=== PATIENT | male | born 1940 | race Caucasian/White ===

== ENCOUNTER 2016-11-03 11:46 | Emergency (ER) | payer MEDICARE, OTHER ==
--- NOTE | 2016-11-03 12:14 | EDM.PDOC ---
ED HPI ENT - General Chief Complaint: ENT Problem Stated Complaint: Oral bleeding Time Seen by Provider: 11/03/16 12:05 Source of Information: Reports: Patient, RN notes reviewed History Limitations: Reports: No limitations - History of Present Illness INITIAL COMMENTS - FREE TEXT/NARRATIVE: 76 year old male presents to the ED due to bleeding in his mouth. He had dental implants placed 3 days ago. Yesterday, his gums started to bleed where the implants were placed. The area has continued to bleed since that time. He has applied pressure with no resolution. He takes coumadin likely for A.fib, however the patient is a poor historian in regards to his medical history. He had his INR checked two weeks go but doesn't remember what it was. He denies dizziness or lightheadedness. - Related Data Allergies/ADRs: Allergies Allergy/AdvReac Type Severity Reaction Status Date / Time No Known Allergies Allergy Verified 04/08/15 13:11 Home Meds: Home Meds Amiodarone [Pacerone] 200 mg PO BEDTIME 11/04/14 [History] FLUoxetine HCl [Fluoxetine] 10 mg PO DAILY 11/04/14 [History] Finasteride [Proscar] 5 mg PO DAILY 11/04/14 [History] Levothyroxine 25 mcg PO DAILY 11/04/14 [History] Multivitamin with Minerals [Multiple Vitamin] 1 tab PO DAILY 11/04/14 [History] Thiamine Mononitrate [Vitamin B-1] 100 mg PO DAILY 11/04/14 [History] Torsemide 50 mg PO DAILY 11/04/14 [History] Carvedilol 12.5 mg PO BID #60 11/07/14 [Rx] Potassium Chloride [Klor-Con 10] 20 meq PO DAILY 04/08/15 [History] Tamsulosin [Flomax] 0.8 mg PO PCBREAKFAST 11/03/16 [History] Past Medical History HEENT History: Reports: Impaired vision Cardiovascular History: Reports: [place] Other Genitourinary History: chronic renal disease. denies dialysis Musculoskeletal History: Reports: Osteoarthritis Other Neuro History: had craniotomy due to head trauma - Past Surgical History Cardiovascular Surgical History: Reports: AICD Social & Family History - Tobacco Use Smoking Status *Q: Never Smoker Years of Tobacco use: 10 Used Tobacco, but Quit: No Month Tobacco Last Used: 1977 Second Hand Smoke Exposure: No - Alcohol Use Days Per Week of Alcohol Use: 0 Number of Drinks Per Day: 0 Total Drinks Per Week: 0 - Recreational Drug Use Recreational Drug Use: No Drug Use in Last 12 Months: No ED ROS ENT - Review of Systems Review Of Systems: See Below Constitutional: Reports: no symptoms. Denies: fever, chills HEENT: Reports: Other (oral bleeding) Respiratory: Reports: No Symptoms Cardiovascular: Reports: No symptoms ED EXAM, ENT - Physical Exam Exam: See Below Exam Limited By: No limitations General Appearance: alert, WD/WN, no apparent distress Nose: normal inspection, normal mucousa Mouth/Throat: Normal oropharynx, Other (bleeding from dental implants on the right upper gums. ) Head: atraumatic, normocephalic Respiratory/Chest: no respiratory distress, lungs clear Cardiovascular: regular rate, rhythm Course - Vital Signs Last Recorded V/S: Last Vital Signs Temp 97.8 F 11/03/16 11:52 Pulse 76 11/03/16 11:52 Resp 18 11/03/16 11:52 BP 121/80 11/03/16 11:52 Pulse Ox 99 11/03/16 11:52 - Orders/Labs/Meds Labs: Laboratory Tests 11/03/16 11/03/16 Range/Units 12:36 12:36 WBC 3.28 L (4.23-9.07) K/mm3 RBC 3.82 L (4.63-6.08) M/mm3 Hgb 12.1 L (13.7-17.5) gm/L Hct 37.7 L (40.1-51.0) % MCV 98.7 H (79.0-92.2) fl MCH 31.7 (25.7-32.2) pg MCHC 32.1 L (32.2-35.5) g/dl RDW Std Deviation 57.7 H (35.1-43.9) fL Plt Count 136 L (163-337) K/mm3 MPV 10.5 (9.4-12.3) fl PT 26.6 H (8.0-13.0) SECONDS INR 2.31 - Re-Assessments/Exams Free Text/Narrative Re-Assessment/Exam: H&H is stable at 12 and 37. INR is therapeutic at 2.3. The bleeding seems to be coming from within the gums, where the implants are inserted. Pressure has not be effective. The bleeding is slow. Discussed with Dr. Douglas who recommends holding the coumadin and said to consider reversing the coumadin with Vitamin K. This was discussed with the patient, including risks associated with reversing coumadin (stroke). Shared decision making process was utilized. The plan will be to hold the coumadin for two days and have him see his PCP in two days to discuss restarting the coumadin. He was thoroughly educated on return precautions including worsening bleeding, lightheadedness, syncope. I did pack the area between the gums and cheek to help hold some pressure. This may or may not be effective. I sent some additional gauze home with the patient. Discharge instructions as documented. Departure - Departure Time of Disposition: 13:36 Disposition: Home, Self-Care 01 Condition: good Clinical Impression: Bleeding gums Referrals: Patrick Garay MD [Primary Care Provider] - Forms: ED Department Discharge Additional Instructions: Hold coumadin for two days Follow-up with your regular provider on Friday for recheck of INR and to discuss restarting your coumadin Return to ER if bleeding does not resolve in 24 hours, if bleeding becomes heavier, you feel lightheaded, dizzy, or pass out.
[2016-11-03 13:55] VITALS: BP 120/67
== END 2016-11-03 13:55 | disposition home or self-care (01) ==
LOC: JD.ED 11:46
DX: K06.8 Other specified disorders of gingiva and edentulous alveolar ridge (principal); I25.2 Old myocardial infarction; N18.9 Chronic kidney disease, unspecified; Z95.810 Presence of automatic (implantable) cardiac defibrillator; Z98.890 Other specified postprocedural states; Z79.899 Other long term (current) drug therapy
CPT/HCPCS: 36415; 85027; 85610; 99282; 99283

== ENCOUNTER 2017-01-23 20:13 | Emergency (ER) | payer MEDICARE, OTHER ==
--- NOTE | 2017-01-23 20:55 | EDM.PDOC ---
ED HPI GENERAL MEDICAL PROBLEM - General Chief Complaint: Head Injury Stated Complaint: Fall Time Seen by Provider: 01/23/17 20:45 Source of Information: Reports: Patient, EMS, RN Notes Reviewed History Limitations: Reports: No Limitations - History of Present Illness INITIAL COMMENTS - FREE TEXT/NARRATIVE: 76 year old male presents to the ED via [facility] after a fall in the [employer] parking lot. He was lifting a case of gatorade into the back of his vehicle when the wind caught it, causing him to fall. He hit his head on the concrete, causing a laceration. He denies loss of consciousness. No neck pain. No vision changes, nausea, vomiting. No additional injury. He is on coumadin. He also has a red, swollen right hand. 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 There is a small abrasion to the hand. No numbness, tingling or weakness. He has a strong hand grasp. - Related Data Allergies Allergy/AdvReac Type Severity Reaction Status Date / Time No Known Allergies Allergy Verified 01/23/17 20:21 Home Meds: Home Meds Amiodarone [Pacerone] 200 mg PO BEDTIME 11/04/14 [History] FLUoxetine HCl [Fluoxetine] 10 mg PO DAILY 11/04/14 [History] Finasteride [Proscar] 5 mg PO DAILY 11/04/14 [History] Levothyroxine 25 mcg PO DAILY 11/04/14 [History] Multivitamin with Minerals [Multiple Vitamin] 1 tab PO DAILY 11/04/14 [History] Thiamine Mononitrate [Vitamin B-1] 100 mg PO DAILY 11/04/14 [History] Torsemide 50 mg PO DAILY 11/04/14 [History] Carvedilol 12.5 mg PO BID #60 11/07/14 [Rx] Potassium Chloride [Klor-Con 10] 20 meq PO DAILY 04/08/15 [History] Tamsulosin [Flomax] 0.8 mg PO PCBREAKFAST 11/03/16 [History] QUEtiapine [SEROquel] 25 mg PO BEDTIME 01/23/17 [History] Warfarin [Coumadin] 1 mg PO DAILY 01/23/17 [History] Past Medical History HEENT History: Reports: Impaired Vision Cardiovascular History: Reports: Afib, [place] Other Genitourinary History: chronic renal disease. denies dialysis Musculoskeletal History: Reports: Osteoarthritis Other Neuro History: had craniotomy due to head trauma - Past Surgical History Cardiovascular Surgical History: Reports: AICD Social & Family History - Tobacco Use Smoking Status *Q: Never Smoker Years of Tobacco use: 10 Used Tobacco, but Quit: No Month Tobacco Last Used: 1977 Second Hand Smoke Exposure: No - Caffeine Use Caffeine Use: Reports: Coffee - Alcohol Use Days Per Week of Alcohol Use: 0 Number of Drinks Per Day: 0 Total Drinks Per Week: 0 - Recreational Drug Use Recreational Drug Use: No Drug Use in Last 12 Months: No ED ROS GENERAL - Review of Systems Review Of Systems: See Below Constitutional: Reports: No Symptoms. Denies: Fever, Chills HEENT: Reports: No Symptoms. Denies: Vertigo, Vision Change Respiratory: Reports: No Symptoms. Denies: Shortness of Breath Cardiovascular: Reports: No Symptoms. Denies: Chest Pain GI/Abdominal: Reports: No Symptoms. Denies: Abdominal Pain, Nausea, Vomiting Musculoskeletal: Reports: Hand Pain. Denies: Neck Pain Skin: Reports: Wound Neurological: Denies: Confusion, Dizziness, Headache, Numbness, Tingling, Weakness ED EXAM, HEAD INJURY - Physical Exam Exam: See Below Exam Limited By: No Limitations General Appearance: Alert, WD/WN, No Apparent Distress Head: Normocephalic, Scalp Lacerations, Scalp Hematoma, Scalp Tenderness Nexus Criteria: Painful Distraction Injuries. No: Posterior, Midline Cervical Tenderness, Evidence of Intoxication, Altered Level of Consciousness, Focal Neurological Deficit Eyes: Bilateral Eye: EOMI, PERRL Throat/Mouth: Normal Inspection, Normal Oropharynx Neck: Non-Tender, Full Range of Motion, Normal Alignment, Normal Inspection Respiratory: No Respiratory Distress, Lungs Clear, Normal Breath Sounds Cardiovascular: Regular Rate, Rhythm Extremities: Other (redness and swelling to right hand. Bony point tenderness over 5th metacarpal. There is a small wound, smaller than a dime, to the ulnar aspect of the hand with small amount of yellow drainage.) Neurologic: No Motor/Sensory Deficits, Alert, Normal Mood/Affect, Oriented x 3, Other (normal gait. normal cerebellar testing) Course - Vital Signs Last Recorded V/S: Last Vital Signs Temp 96 F 01/23/17 20:16 Pulse 73 01/23/17 22:15 Resp 16 01/23/17 22:15 BP 113/73 01/23/17 22:15 Pulse Ox 99 01/23/17 22:15 - Orders/Labs/Meds Orders: Active Orders 24 hr Category Date Time Status Cervical Spine wo Cont [CT] Stat Exams 01/23/17 20:54 Taken Hand Comp Min 3V Rt [CR] Stat Exams 01/23/17 20:54 Ordered Head wo Cont [CT] Stat Exams 01/23/17 20:54 Taken Labs: Laboratory Tests 01/23/17 01/23/17 01/23/17 Range/Units 20:51 20:51 20:51 WBC 3.84 L (4.23-9.07) K/mm3 RBC 3.57 L (4.63-6.08) M/mm3 Hgb 11.2 L (13.7-17.5) gm/L Hct 35.5 L (40.1-51.0) % MCV 99.4 H (79.0-92.2) fl MCH 31.4 (25.7-32.2) pg MCHC 31.5 L (32.2-35.5) g/dl RDW Std Deviation 62.9 H (35.1-43.9) fL Plt Count 145 L (163-337) K/mm3 MPV 11.6 (9.4-12.3) fl Neut % (Auto) 52.7 (34.0-67.9) % Lymph % (Auto) 23.4 (21.8-53.1) % [place] % (Auto) 13.0 H (5.3-12.2) % Eos % (Auto) 9.1 H (0.8-7.0) Baso % (Auto) 1.0 (0.1-1.2) % Neut # (Auto) 2.02 (1.78-5.38) K/mm3 Lymph # (Auto) 0.90 L (1.32-3.57) K/mm3 [place] # (Auto) 0.50 (0.30-0.82) K/mm3 Eos # (Auto) 0.35 (0.04-0.54) K/mm3 Baso # (Auto) 0.04 (0.01-0.08) K/mm3 PT 45.7 H (8.0-13.0) SECONDS INR 3.85 Sodium 137 (136-145) mEq/L Potassium 5.0 (3.5-5.1) mEq/L Chloride 104 (98-107) mEq/L Carbon Dioxide 28 (21-32) mEq/L Anion Gap 10.0 (5-15) BUN 68 H (7-18) mg/dL Creatinine 3.8 H (0.7-1.3) mg/dL Est Cr Clr Drug Dosing 18.80 mL/min Estimated GFR (MDRD) 16 (>60) mL/min BUN/Creatinine Ratio 17.9 (14-18) Glucose 134 H (83-115) mg/dL Calcium 8.8 (8.5-10.1) mg/dL Total Bilirubin 2.8 H (0.2-1.0) mg/dL AST 28 (15-37) U/L ALT 21 (16-63) U/L Alkaline Phosphatase 142 H (46-116) U/L Total Protein 7.2 (6.4-8.2) g/dl Albumin 3.4 (3.4-5.0) g/dl Globulin 3.8 gm/dL Albumin/Globulin Ratio 0.9 L (1-2) Meds: Medications Discontinued Medications Generic Name Dose Route Start Last Admin Trade Name Freq PRN Reason Stop Dose Admin Phytonadione 10 mg/ Sodium 51 mls @ 100 mls/hr 01/23/17 22:07 01/23/17 22:18 Chloride IV 01/23/17 22:37 100 mls/hr NOW ONE Administration Lidocaine/Tetracaine 1 ml 01/23/17 21:17 01/23/17 21:23 Let Soln TOP 01/23/17 21:18 1 ml ONETIME ONE Administration - Re-Assessments/Exams Free Text/Narrative Re-Assessment/Exam: 2[address] [facility] called and report received. Impressoin: 1. Small amount of left temporal subarachnoid hemorrhage 2. There may be a small amount of subdural hemorrhage along the left tentorium as well 3. Senescent changes of the brain are present C-spien impression: 1. Grade 2 anterolisthesis of C2 C3 2. Severe bilateral facet athropathy at this level with multiple bone fragments in particular on the right that could be the result of arthropathy, but a fracture could be present. Patient placed in [place] c-collar. Right hand x-ray negative for bony abnormality. I do suspect early cellulitis. Antibiotics should be considered, however his more acute problems must be addressed first. Discussed with Dr. Douglas. INR is 3.85. Dr. Douglas recommends Vitamin K 10mg IV slow IV over 20-60 minutes. He recommends immediate transfer to higher level of care via flight due to high risk of worsening bleed. Patient is a [facility] so [facility] immediately contacted. 01/23/17 22:20 Spoke to Neurosurgeon at [facility], Dr. Martinez, who reviewed the CTs. She has accepted care. Discussed Vitamin K which she agrees is appropriate. Then spoke to Hospitalist Dr. Marks who will be the admitting provider. He accepted care of the patient. Flight team is present. Departure - Departure Time of Disposition: 22:36 Disposition: DC/Tfer to Acute Hospital 02 Condition: Serious Clinical Impression: Subarachnoid bleed, Subdural hemorrhage, Anticoagulant long-term use - Discharge Information Referrals: Patrick Garay MD [Primary Care Provider] - Forms: ED Department Discharge - My Orders Last 24 Hours: My Active Orders 01/23/17 20:54 Cervical Spine wo Cont [CT] Stat Hand Comp Min 3V Rt [CR] Stat Head wo Cont [CT] Stat - Assessment/Plan Last 24 Hours: My Active Orders 01/23/17 20:54 Cervical Spine wo Cont [CT] Stat Hand Comp Min 3V Rt [CR] Stat Head wo Cont [CT] Stat
[2017-01-23] MEDS ORDERED: Lidocaine/EPINEPHrine/Tetracaine Soln 1 ML TOP ONE (21:17)
[2017-01-23] MEDS ORDERED: Phytonadione 10 MG in Sodium Chloride 0.9% 50 ML IV ONE (22:07)
[2017-01-23 23:09] VITALS: BP 127/88
--- NOTE | 2017-01-24 09:06 | CT ---
Head CT Technique: Multiple axial sections through the brain were obtained. Intravenous contrast was not utilized. Comparison: Previous head CT study of 11/19/09. Ventricles along with basal cisterns and sulci over the convexities are moderately prominent. Diminished density noted within portions of the periventricular white matter compatible with small vessel ischemic demyelination change. Previous right-sided craniotomy is noted. Small amount of subarachnoid blood noted within the left temporal lobe. There is also small amount of subdural blood along the left cerebellar tentorium. No other abnormal areas of intracranial hemorrhage are seen. 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 Atherosclerotic change is seen within the carotid siphon. Visualized sinuses are clear. No acute calvarial abnormality is seen. Impression: 1. Senescent change as described above. 2. Small subarachnoid hemorrhage within the left temporal lobe as well as small amount of acute subdural blood along the left cerebellar tentorium. 3. Previous right-sided craniotomy. Diagnostic code #3 I agree with preliminary report issued by [employer] ([facility] preliminary report dictated on 01/23/17, 10:47 PM Central Time)
--- NOTE | 2017-01-24 09:06 | CR ---
Right hand: Four views of the right hand were obtained. Comparison: No previous hand study. Soft tissue swelling is identified. Scattered joint space narrowing noted within the DIP, PIP joints and MCP joints. Joint space narrowing noted off the distal navicular bone as well as degenerative change within the CMC joint of the thumb. Bony structures are osteopenic. No acute fracture or dislocation is seen. Small opaque foreign body projected at the base of the thumb which is likely old. Minimal chondrocalcinosis noted within the triangular fibrocartilage. Impression: 1. Degenerative change and osteopenia. 2. Soft tissue swelling. 3. Other incidental findings. Nothing acute is appreciated. Diagnostic code #2
--- NOTE | 2017-01-24 09:37 | CT ---
CT cervical spine Technique: Multiple axial sections were obtained from above C1 inferiorly to the top of T3. Reconstructed sagittal and coronal images were reviewed. Comparison: No previous cervical spine imaging is available. Findings: Spondylolisthesis noted at C2-C3 which measures approximately 5.4 mm. This appears to be due to severe degenerative apophyseal change. There is some fragmentation being seen within the right side of the apophyseal joint at this level which may relate to degenerative arthropathy versus old fracture. I do not believe that this is definitely acute. Severe disc space narrowing noted at C2-C3 through C6-C7. Mild retrolisthesis seen at C4-C5. Diffuse posterior osteophytes are seen. Mastoid sinuses and middle ear cavities are clear. Posterior skull base is intact. No definite acute fracture is seen. Moderate left-sided neural foraminal stenosis noted at C2-C3. Mild to moderate bilateral neural foraminal stenosis noted at C3-C4. Moderate right-sided neural foraminal stenosis noted C4-C5 and mild left-sided neural foraminal stenosis noted at C4-C5. Moderate bilateral neural foraminal stenosis noted at C5-C6. Mild to moderate bilateral neural foraminal stenosis is noted at C6-C7. Diffuse degenerative change seen throughout the apophyseal joints. Impression: 1. Spondylolisthesis at C2-C3. This measures approximately 5.4 cm and is felt compatible with severe degenerative apophyseal change. Bony densities off the apophyseal joint at C2-C3 on the right side most likely due to changes of arthropathy although difficult to exclude old fracture. 2. Diffuse degenerative change as noted above. 3. Nothing acute is definitely appreciated. Diagnostic code #3 I agree with preliminary report issued by [employer] ([facility] preliminary report dictated on 01/23/17, 10:57 PM Central Time)
--- NOTE | 2017-01-24 10:52 | CT ---
CT cervical spine Technique: Multiple axial sections were obtained from above C1 inferiorly to the top of T3. Reconstructed sagittal and coronal images were reviewed. Comparison: No previous cervical spine imaging is available. Findings: Spondylolisthesis noted at C2-C3 which measures approximately 5.4 mm. This appears to be due to severe degenerative apophyseal change. There is some fragmentation being seen within the right side of the apophyseal joint at this level which may relate to degenerative arthropathy versus old fracture. I do not believe that this is definitely acute. Severe disc space narrowing noted at C2-C3 through C6-C7. Mild retrolisthesis seen at C4-C5. Diffuse posterior osteophytes are seen. Mastoid sinuses and middle ear cavities are clear. Posterior skull base is intact. No definite acute fracture is seen. Moderate left-sided neural foraminal stenosis noted at C2-C3. Mild to moderate bilateral neural foraminal stenosis noted at C3-C4. Moderate right-sided neural foraminal stenosis noted C4-C5 and mild left-sided neural foraminal stenosis noted at C4-C5. Moderate bilateral neural foraminal stenosis noted at C5-C6. Mild to moderate bilateral neural foraminal stenosis is noted at C6-C7. Diffuse degenerative change seen throughout the apophyseal joints. Impression: 1. Spondylolisthesis at C2-C3. This measures approximately 5.4 mm and is felt compatible with severe degenerative apophyseal change. Bony densities off the apophyseal joint at C2-C3 on the right side most likely due to changes of arthropathy although difficult to exclude old fracture. 2. Diffuse degenerative change as noted above. 3. Nothing acute is definitely appreciated. Diagnostic code #3 I agree with preliminary report issued by [email or web address] ([facility] preliminary report dictated on 01/23/17, 10:57 PM Central Time) [facility]
== END 2017-01-23 23:05 ==
LOC: JD.ED 20:13
DX: S06.6X0A Traumatic subarachnoid hemorrhage without loss of consciousness, initial encounter (principal); S06.5X0A Traumatic subdural hemorrhage without loss of consciousness, initial encounter; S01.01XA Laceration without foreign body of scalp, initial encounter; I25.2 Old myocardial infarction; I48.91 Unspecified atrial fibrillation; I12.9 Hypertensive chronic kidney disease with stage 1 through stage 4 chronic kidney disease, or unspecified chronic kidney disease; N18.9 Chronic kidney disease, unspecified; Z95.810 Presence of automatic (implantable) cardiac defibrillator; Z79.01 Long term (current) use of anticoagulants; Z79.899 Other long term (current) drug therapy; W19.XXXA Unspecified fall, initial encounter; Y92.481 Parking lot as the place of occurrence of the external cause
CPT/HCPCS: 36415; 70450; 72125; 73130; 80053; 85025; 85610; 96374; 99285; A9270; J3430; J7050; 12001